=== PATIENT | female | born 1965 | race Caucasian/White ===

== ENCOUNTER 2019-07-28 18:19 | Emergency (ER) | payer BC ==
[~2019-07-28] VITALS: Ht 170.2 cm; Wt 88.5 kg
[2019-07-28 19:02] VITALS: BP_SYST 140
--- NOTE | 2019-07-28 19:10 | NUR ---
Patient triaged and placed in waiting room. VSS and patient appears in no acute distress at this time. Accompanied by , awaiting available bed, and MD notified of need for MSE.
--- NOTE | 2019-07-28 20:58 | NUR ---
BROUGHT BACK TO BED #5 AND REPORT GIVEN TO AMEE
--- NOTE | 2019-07-28 21:00 | NUR ---
Pt in chair, refuses to put on gown at this time. just wants to see left lower leg. C/O pain 5/10 when its touched and 1 if not touched. Pt states she fell earlier. Denies dizziness, or LOC, No distress noted.
--- NOTE | 2019-07-28 21:10 | NUR ---
ER at bedside examining patient.
--- NOTE | 2019-07-28 22:10 | NUR ---
PT REFUSED XRAY OF RIBS
--- NOTE | 2019-07-28 22:22 | NUR ---
pt to Radiology for ultrasound of left lower leg.
[2019-07-28 22:50] VITALS: BP_SYST 140
--- NOTE | 2019-07-28 22:50 | NUR ---
Patient given written and verbal discharge instructions and verbalizes understanding. DR. YENIFER ARMSTRONG MD discussed with patient the results and treatment provided. Patient in stable condition. ID arm band removed. Patient educated on pain management and to follow up with PMD. Pain Scale 0/10. Opportunity for questions provided and answered.
== END 2019-07-28 22:50 | disposition home or self-care (01) ==
LOC: SED 18:19
DX: S20.212A Contusion of left front wall of thorax, initial encounter (principal); S80.12XA Contusion of left lower leg, initial encounter; W18.39XA Other fall on same level, initial encounter; Y93.89 Activity, other specified; Y92.89 Other specified places as the place of occurrence of the external cause; Y99.8 Other external cause status
CPT/HCPCS: 93971; 99284